=== PATIENT | female | born 1975 | race Caucasian/White ===

== ENCOUNTER 2021-01-08 | Outpatient (REF) | payer OTHER, SELFPAY | END 2021-01-08 00:01 | disposition home or self-care (01) | LOC: HO.LNP | PROVIDERS: Visit Provider Hospitalist | DX: R30.0 Dysuria (principal) | CPT/HCPCS: 87086; 87147 ==

== ENCOUNTER 2025-04-16 13:31 | Outpatient (AMB) | payer OTHER, SELFPAY ==
--- OUTSIDE RECORDS SUMMARY | 2024-01-13 05:00 | XMS_ITS ---
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 * Medical History: Objective: * Vitals: Assessment: Plan: * Treatment: * Images: Billing Information: * Visit Code: * Procedure Codes: * Electronic signature of BOBBY BARTON MD on 04/16/2025 at 05:26 PM EDT Sign off status: Pending * Provider: Otilia BARTON MD Date: 0 01/13/2024 Generated for Rocio patel/Luz/Dallin on: 0 04/16/2025 05:26 PM EDT
--- OUTSIDE RECORDS SUMMARY | 2024-12-27 11:00 | XMS_ITS ---
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 S he has been in state of good health since her last exam. She has the following concerns: *still having heavy periods. She has received the tapviva Covid-19 vaccine. R elationship status: * for [...] does *not exercise. * ROS: A nnual Roller Coaster Operator Exam ROS: Bowel habit changes d enies. [...] no acute distress, well developed, well nourished, testing manager present in room. HEAD: n ormocephalic, atraumatic. [...] * Follow Up: 1 Year (Reason: Yearly Roller Coaster Operator Exam) * Images: Billing Information: * Visit Code: 74021 Preventive Care Est Pt. Age 40-64. 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 She has been in state of [...] General Examination GENERAL APPEARANCE: in no ac [place] distress, well developed, well nourished, testing manager present in room HEAD: normocephalic, atrau matic [...]
[2025-04-16 13:38] VITALS: BP 132/82; PULSE 102; O2SAT 97
--- NOTE | 2025-04-16 13:38 | A.OFFPC_ITS ---
Vital Signs 04/16/25 13:38 Weight 254 lb 8 oz BP 132/82 Blood Pressure Location Lt brachial Position Sitting Pulse 102 H Pulse Source Pulse Oximeter Pulse Oximetry (%) 97 Oxygen Delivery Method Room Air Intake Visit Reasons: new patient Speeder Frame Tender Required: No Accompanied by: Self / Same As Patient Allergies Sulfa (Sulfonamide Antibiotics) Allergy (Mild, Verified 04/16/25 13:52) HIVES fluticasone (From FLONASE) Allergy (Unknown, Verified 04/16/25 13:52) HIVES febreze spray Allergy (Unknown, Uncoded 04/16/25 13:52) hives flonase Allergy (Unknown, Uncoded 04/16/25 13:52) hives shrimp Allergy (Unknown, Uncoded 04/16/25 13:52) throat swelling Medication List - Last Reconciled 04/16/25 by Anisa Ramos PA-C norethindrone (contraceptive) (Ivelisse) 0.35 mg PO DAILY Tobacco use date assessed: 04/16/25 Dental Screening Did you have a dental visit in the last 12 months?: No Did you have a dental problem in the last 6 months where you did not have access to dental care?: No Was dental information given to patient?: No HPI new patient HPI Details 49-year-old female coming to the office with the 1st time. Presenting for a wellness visit and to establish care. History of elevated blood pressure readings during medical appointments, not diagnosed as chronic hypertension. Experiencing premenopausal symptoms, including irregular periods and excessive bleeding, managed with control pills and does follow with senior digital designer. History of eardrum replacement surgery in the right ear, reports occasional hearing difficulties. mammogram: declining today but will think about it colonoscopy: Cologuard box ordered Vaccines: due for Td ordered today pap smear: [facility] Dr. Piedra yearly [facility] Surgical History H/O hemorrhoidectomy S/P tympanoplasty S/P tubal ligation H/O tympanostomy Family History Father Prostate cancer Mother Lung fibrosis Paternal Grandfather Leukemia Social History Household Members: Spouse and Children Both parents involved: Yes Caregiver staying overnight: No Housing: House Are you a primary multi care technician to a significant other at home: No Do you presently have visiting nurse or other home services: No Alcohol intake: current Patient Tobacco Use Status: Never used Tobacco e-Cigarette/Vaping Use: Never Used service: No Current occupational status: employed Current occupation: [employer] Cognitive needs: No Hearing needs: No Vision needs: Yes Questionnaire PHQ-9 Over the last 2 weeks, how often have you been bothered by any of the following problems? 1. Little interest or pleasure in doing things: not at all 2. Feeling down, depressed, or hopeless: not at all 3. Trouble falling or staying asleep, or sleeping too much: several days 4. Feeling tired or having little energy: several days 5. Poor appetite or overeating: not at all 6. Feeling bad about yourself - or that you are a failure or have let yourself or your family down: not at all 7. Trouble concentrating on things, such as reading the newspaper or watching television: not at all 8. Moving or speaking so slowly that other people could have noticed. Or the opposite - being so fidgety or restless that you have been moving around a lot more than usual: not at all 9. Thoughts that you would be better off or of hurting yourself in some way: not at all Total score: 2 Depression Screening Interpretation: Negative Depression Screening Done: Yes 72341 - PHQ-9 Billing: Yes Source: Developed by Drs. Adam Patel, Lucille Johnson, Clifford Chew and colleagues, with an educational maritza from [employer]. Thrive Questionnaire Date Thrive assessed: 04/16/25 I am a: Patient What is your living situation today?: I have a steady place to live Within the past 12 months, did the food you bought not last and you didn't have the money to get more?: Never true Within the past 12 months, did you worry whether your food would run out before you got money to buy more?: Never true Do you have trouble paying for medicines?: No Do you have trouble getting transportation to medical appointments?: No Do you have trouble paying your heating and electricity bill?: No Do you have trouble taking care of your child, family member or friend?: No Do you have trouble with day-to-day activities such as bathing, preparing meals, shopping, managing finances, etc.?: No Are you currently unemployed and looking for a job?: No Are you interested in more education?: No Please select the resources that you would like help with: None Currently or been in a relationship where the following occur: No concerns reported THRIVE Score: 0 AUDIT C Alcohol Use Questionnaire (AUDIT-C) 1. How often do you have a drink containing alcohol?: 2-3 times a week 2. How many drinks containing alcohol do you have on a typical day when you are drinking?: 1 or 2 3. How often do you have six or more drinks on one occasion?: Never Total Score: 3 INES-7 AMB Questionnaire INES-7 Date INES - 7 assessed: 04/16/25 Feeling nervous, anxious, or on edge: 1 = Several days Not being able to stop or control worryin = Not at all Worrying too much about different things: 0 = Not at all Trouble relaxin = Not at all Being so restless that it is hard to sit still: 0 = Not at all Becoming easily annoyed or irritable: 1 = Several days Feeling afraid as if something awful might happen: 0 = Not at all Total INES-7 score (0-4 normal; 5-9 mild; 10-14 moderate; 15-21 severe): 2 Source: Developed by Drs. Adam Patel, Lucille Johnson, Clifford Chew and colleagues, with an educational maritza from [employer]. INES-7 Assessment Billing INES-7 Assessment Tool: INES-7 Assessment 58309 Review of Systems Const Denies body aches, Denies fatigue, Denies fever(s), Denies frequent falls, Denies headache(s) and Denies weakness Eyes Reports no additional complaints and Denies change in vision ENT Denies dysphagia, Denies dizziness, Denies facial pain, Denies headache(s), Denies nasal congestion and Denies odynophagia Card Denies chest pain, Denies syncope, Denies irregular heart rhythm, Denies leg edema, Denies lightheadedness and Denies dyspnea Resp Denies cough and Denies dyspnea GI Denies constipation, Denies dysphagia, Denies dyspepsia, Denies diarrhea, Denies nausea, Denies odynophagia and Denies vomiting Denies urinary frequency, Denies dysuria, Denies urinary hesitancy and Denies urinary urgency Musc Denies back pain and Denies myalgias Skin/Breast Reports system reviewed and no additional complaints, except as documented Neuro Denies dizziness, Denies syncope, Denies frequent falls, Denies headache(s) and Denies weakness Psych Reports no additional complaints Endo Denies fatigue Physical exam (Primary Care) Vital Signs: Last Vital Signs Pulse 102 H 04/16/25 13:38 BP 132/82 04/16/25 13:38 Pulse Ox 97 04/16/25 13:38 Oxygen Delivery Method Room Air 04/16/25 13:38 Tobacco/Smoking Status: Tobacco use Status Tobacco use date assessed 04/16/25 04/16/25 13:51 Patient Tobacco Use Status Never used Tobacco 04/16/25 13:48 e-Cigarette/Vaping Use Never Used 04/16/25 13:51 PHQ-9: PHQ-9 Score PHQ-9: Total score 2 04/16/25 14:18 Depression Screening Interpretation: Negative Thrive Assessment: Date of Thrive Assessment Date Thrive assessed 04/16/25 04/16/25 13:42 Currently or been in a relationship where the following occur: No concerns reported Const General: cooperative, healthy appearing, comfortable and no acute distress Orientation/consciousness: patient oriented x3 HENMT Head: Yes normocephalic Ears: hearing grossly normal bilaterally General nose exam: Normal external nose present Face and sinus: Yes normal facial exam and Yes sinuses nontender Mouth: Normal oral and palatal mucosa present and tongue normal Throat: Yes posterior oropharynx normal Eyes General: appearance normal, both eyes and all related structures Conjunctivae: conjunctivae normal Pupils: Equal, round and reactive pupils present EOM: EOMs intact bilaterally and No Nystagmus present Neck Neck: Yes full ROM and Yes no lymphadenopathy Chest Chest palpation & inspection: normal inspection of the chest Resp Effort & Inspection: normal respiratory effort Auscultation: clear to auscultation bilaterally, no crackles, no rales, no rhonchi and no wheezes Cardio Rate: regular rate Rhythm: regular rhythm Peripheral pulses: radial pulses present and dorsalis pedis present GI Inspection: Yes normal to inspection and No Abdominal wall edema Palpation (GI): Soft to palpation, not firm and nontender Auscultation: normal bowel sounds Rectal Exam - Female: deferred General: Yes no CVA tenderness Back/Spine/Pelvis Back: no CVA tenderness Skin General skin exam: no rashes or lesions noted Neuro General: patient oriented x3 Cranial nerves: Yes Equal, round and reactive pupils present, Yes Midline tongue present, Yes Ability to bilaterally elevate shoulders present and No Nystagmus present Gait exam (Neuro): Normal gait present Extrem General: Yes normal to inspection, Yes full ROM and No edema Psych Speech and movement: Normal speech and movement present Affect: normal affect Attitude: cooperative Insight: Good insight present (Psych) Judgement: Good judgement present (Psych) Immunizations Boostrix Tdap 2.5 Lf unit-8 mcg-5 Lf/0.5 mL intramuscular syringe Performing Provider: Anisa Ramos PA-C Performing Location: [facility] [place] [place] [facility] Administered by: Kelly Wills RN on 04/16/25 14:18 Dose Route Admin Location Dispensed Lot Number Expiration Date [facility] Manufactured Buildings Supervisor 0.5 mL IM Left Deltoid 0.5 mL [id number] 06/20/27 [id number] [employer] Total Dispensed Waste 0.5 mL 0 % VIS Given Date VIS Provided VIS Publication Date 04/16/25 Single Vaccine 21 Eligibility Eligibility Date Funding Source Not [facility] Eligible 04/16/25 Private Coding Level of Care Code New Pt Prev Care 40-64y(83131) Diagnoses Annual physical exam Z00.00 Colon cancer screening Z12.11 Mammogram declined Z53.20 Obesity (BMI 30-39.9) E66.9 Perforated ear drum H72.90 Additional Codes INES-7 Assessment Billing - INES-7 Assessment Tool: INES-7 Assessment 50508 ([id number]) PHQ-9 - 25180 - PHQ-9 Billing: Yes ([id number]) Assessment & Plan Assessment & Plan (1) Annual physical exam: Code(s): Z00.00 - Encounter for general adult medical examination without abnormal findings Category: Medical Plan: Patient is not up to date on all recommended routine screenings and vaccinations for her age. She is due for mammogram which she is declining today. I placed the order for Cologuard box and blood work today. Healthy diet and regular exercise is encouraged. Plan to follow up in 3 months to review blood work or sooner as needed. (2) Colon cancer screening: Code(s): Z12.11 - Encounter for screening for malignant neoplasm of colon Category: Medical Plan: Ordered for Cologuard box today. (3) Mammogram declined: Code(s): Z53.20 - Procedure and treatment not carried out because of patient's decision for unspecified reasons Category: Medical Plan: Declining mammogram today and understands the risks of not having this screening test performed. (4) Obesity (BMI 30-39.9): Code(s): E66.9 - Obesity, unspecified Category: Medical Plan: Healthy diet and regular exercise is encouraged. (5) Perforated ear drum: Code(s): H72.90 - Unspecified perforation of tympanic membrane, unspecified ear Category: Medical Plan: Patient has a history of multiple tympanoplasty procedures on the right side and on exam there is a small hole in the TM. Recommend dry ear precautions and following up with ENT urgently for evaluation and treatment. No evidence of infection on exam and no drainage in the ear canal. Plan This note was constructed using voice recognition software. While every effort has been made to ensure accuracy and roving hauler, still areas may have been included sometimes these areas may affect the content or meeting of the given symptoms. Total time spent caring for the patient today was 30 minutes. This includes time spent before the visit reviewing the chart, time spent during the visit, and time spent after the visit and documentation. Patient was informed and verbally consented to the use of an ambient scribe for clinic note documentation during this visit. Orders: Orders Complete Blood Count Auto Diff 04/16/25 Z00.00 - Encounter for general adult medical examination without abnormal findings Comprehensive Met. Panel 04/16/25 E66.9 - Obesity, unspecified, Z13.1 - Encounter for screening for diabetes mellitus TSH reflex Free T4 04/16/25 Z13.29 - Encounter for screening for other suspected endocrine disorder Vitamin B12 and Folate 04/16/25 Z13.21 - Encounter for screening for nutritional disorder Vitamin D 25-OH Total 04/16/25 Z13.21 - Encounter for screening for nutritional disorder Lipid Panel 04/16/25 E66.9 - Obesity, unspecified, Z13.220 - Encounter for screening for lipoid disorders Hemoglobin A1c 04/16/25 Z13.1 - Encounter for screening for diabetes mellitus TDaP Immunization 04/16/25 Z23 - Encounter for immunization Referrals Cologuard Test Z12.11 - Encounter for screening for malignant neoplasm of colon Ear/Nose/Throat Referral H72.90 - Unspecified perforation of tympanic membrane, unspecified ear
--- OUTSIDE RECORDS SUMMARY | 2025-04-16 17:26 | XMS_ITS | Patient Health Record ---
Author Organization [employer] [facility] Address [address] [address] Care Team Providers Care Cashier Payments Received Name Role Phone RANDA ORONA, SAMANTHA Primary Care Provider Unav BOBBY Moulton Unavailable [phone] Allergies Allergen (clinical drug ingredient) Drug/Non Drug Allergy documented on EMR Reaction Allergy Type Onset Date Status fluticasone Flonase hives Drug Allergy Activ e Substance with sulfonamide structure and antibacterial mechanism of action (substance) Sulfa Antibiotics hives Drug Allergy Active Reason For Referral No Information Medications Medication SIG (Take, Route, Fr equency, Duration) Notes Start Date End Date Status Norethindrone 0.35 MG 1 tablet Orally On ce a day; Duration: 84 days 02/28/2024 Active Social History Tobacco Use: Social History Observation Description Date Details (start date - stop date) Never Smoker NA - NA Tobacco Use/Smoking Question Answer Notes Are you a nonsmoker Tobacco use other than smoking: Question Answer Notes Are you an other tobacco user? No AUDIT-C (Standard) Question Answer Notes Did you have a drink contain ing alcohol in the past year? Yes How often did you have six o r more drinks on one occasion in the past year? Never (0 point) How many drinks did you have on a typical day when you were drinking in the past year? 1 or 2 drinks (0 point) How often did you have a dri nk containing alcohol in the past year? 2 to 3 times a week (3 points) Points 3 Interpretation Positive Problems Problem Type SNOMED Code ICD Code Onset Dates Problem Status W/U Status Risk Notes Problem Excessive and frequent menstruation (147518355) Excessive and frequent menstruation with regular cycle (N92.0) Active confirmed Problem Leiomyoma of uterus (96075326) Leiomyoma of uterus, unspecified (D25.9) Active confirmed Problem Obesity (855071758) Obesity, unspecified (E66.9) Active confirmed Problem Migraine without aura, not refractory (disorder) (518126783) Migraine, unspecified, not intractable, without status migrainosus (G43.909) Active confirmed Problem Osteoarthritis (824640763) Unspecified osteoarthritis, unspecified site (M19.90) Active confirmed Problem Endometriosis of uterus (31342401) Endometriosis of uterus (N80.0) Active confirmed Problem Intermenstrual bleeding - irregular (29584231) Excessive and frequent menstruation with irregular cycle (N92.1) Active confirmed Problem Abnormal vaginal bleeding (678989926) Other specified abnormal uterine and vaginal bleeding (N93.8) Active confirmed Problem Body mass index 40+ - severely obese (770532437) Body mass index (BMI) 40.0-44.9, adult (Z68.41) Active confirmed Problem COVID-19 (929336072) COVID-19 (U07.1) Active confirmed Vital Signs Heart Rate 97.3 /min 02/14/2025 Blood pressure diastolic 74 mm Hg 02/14/2025 Height 65 in 02/14/2025 Blood pressure systolic 138 mm Hg 02/14/2025 Weight 251 lbs 02/14/2025 BMI 41.76 kg/m2 02/14/2025 Encounters Encounter Location Date Provider Diagnosis [address] [place] [address] 02/14/2025 BOBBY BARTON Encounter for gynecological examination (general) (routine) without abnormal findings Z01.419 ; Encounter for screening mammogram for malignant neoplasm of breast Z12.31 ; Excessive and frequent menstruation with regular cycle N92.0 and Body mass index (BMI) 40.0-44.9, adult Z68.41 Assessments Encounter Date Diagnosis (ICD Code) Assessment Notes Treatment Notes Treatment Clinical Notes Section Notes 02/14/2025 Encounter for gynecological examination (general) (routine) without [...] to keep colon screening up to date. 02/14/2025 Encounter for screening mammogram for malignant neoplasm of breast (ICD-10 - Z12.31) 02/14/2025 Excessive and frequent menstruation with regular cycle (ICD-10 - N92.0) 02/14/2025 Body mass index (BMI) 40.0-44.9, adult (ICD-10 - Z68.41) Plan Of Treatment Pending Test Test Name Order Date Ultrasound : Sono Hystergram 03/15/2018 ESTRADIOL 04/21/2018 FREE TESTOSTERONE 03/15/2018 FSH 04/21/2018 TESTOSTERONE, TOTAL, BY EXTRACTION 03/15 THIN PREP,HPV,FILIPE IF HPV+ (>29YR)(SCRN) 11/02/2017 MM Digital Mammo Screening 11/02/2017 MM Digital Screening Mammogram 3D 2018 MM Digital Screening Mammogram 3D 2023 MM Digital Screening Mammogram 3D 2024 CBC, Platelet, No Differential-[id number] Next Appt Details Provider Name:BOBBY Otilia FIGUEROAVIPIN Alla, 02/18/2026 09:30:00 AM, [address], [address], [place], [address], Insurance Providers Payer Name Payer Address Payer Phone Subscriber Number Group Number Insured Name Patient Relationship to Insured Coverage Start Date Coverage End Date [facility] [address] [place] [address] [id number] [id number] Self - patient is the insured 3 Medical (General) History Medical History History ICD Code Migraine, unspecified, not intractable, without status migrainosus G43.909 Unspecified osteoarthritis, unspecified site M19.90 Obesity, unspecified E66.9 Leiomyoma of uterus, unspecified Excessive and frequent menstruation with irregular cycle N92.1 COVID-19 U07.1 Surgical History Surgery Date(Month/Year) BTL 2006 cone bx 1994 Ear Drum Replacement 1988 laser to cervix late Hospitalization History Reason Date(Month/Year) See Surgical HX
== END 2025-04-16 14:22 | disposition home or self-care (01) ==
DX: Z23 Encounter for immunization (principal)

== ENCOUNTER → 2025-04-16 13:31 | Outpatient (BNVA) | payer OTHER, SELFPAY | DX: Z00.00 Encounter for general adult medical examination without abnormal findings (principal); E78.00 Pure hypercholesterolemia, unspecified; I10 Essential (primary) hypertension; E66.9 Obesity, unspecified; Z23 Encounter for immunization; Z86.69 Personal history of other diseases of the nervous system and sense organs; Z98.890 Other specified postprocedural states | CPT/HCPCS: 90471; 90715; 96127 ==

== ENCOUNTER 2025-07-06 11:28 | Outpatient (REF) | payer OTHER, SELFPAY ==
[2025-07-06 13:47] LABS: MANUAL DIFF FLAG NO
[2025-07-06 13:52] LABS: Hematocrit 40.3 % (37.0-47.0); Hemoglobin 12.8 g/dl (12.0-16.0); Imm Gran Abs Auto 0.02 X10*3/uL (0.00-0.03); Imm Gran Pct Auto 0.3 % (0.0-0.4); Lymphocytes Absolute Auto 2.2 X10*3/uL (1.2-4.9); Mean Corpuscular HGB Conc 31.8 g/dl (31.0-35.0); Mean Corpuscular Hemoglobin 26.8 pg (27.0-33.0); Mean Corpuscular Volume 84.5 fL (80.0-98.0); NRBC Abs Auto 0.000 X10*3/uL (0.0-0.012); NRBC Pct Auto 0.0 /100WBC (0.0-0.2); Platelet Count 293 X10*3/uL (160-400); Red Blood Count 4.77 X10*6/uL (4.20-5.50); White Blood Count 6.9 X10*3/uL (4.8-10.8)
[2025-07-06 14:11] LABS: Alanine Aminotransferase 26 U/L (0-31); Albumin Level 4.1 g/dL (3.5-5.0); Alkaline Phosphatase 78 U/L (39-117); Anion Gap 11 (12-20); Aspartate Amino Transferase 23 U/L (5-31); Blood Urea Nitrogen 15 mg/dL (9-16); Calcium 8.9 mg/dL (8.4-10.2); Carbon Dioxide 25 mmol/L (22-29); Chloride 106 mmol/L (96-108); Cholesterol 217 mg/dL (<200); Estimated Glomerular Filt Rate > 60; HDL Cholesterol 68 mg/dL (>40); Potassium 4.4 mmol/L (3.3-5.1); Sodium 138 mmol/L (135-145); Total Protein 7.5 g/dL (6.5-8.0); Triglycerides 85 mg/dL (<150)
[2025-07-06 14:40] LABS: Folate 11.5 ng/mL (> or = 4.0); Vitamin B12 384 pg/mL (200-900)
== END 2025-07-06 11:29 | disposition home or self-care (01) ==
LOC: HO.HMGCLDS 11:28
DX: Z00.00 Encounter for general adult medical examination without abnormal findings (principal); Z13.1 Encounter for screening for diabetes mellitus; E66.9 Obesity, unspecified; Z13.29 Encounter for screening for other suspected endocrine disorder; Z13.21 Encounter for screening for nutritional disorder; Z13.220 Encounter for screening for lipoid disorders
CPT/HCPCS: 36415; 80053; 80061; 82306; 82607; 82746; 83036; 84443; 85025

== ENCOUNTER 2025-07-22 14:23 | Outpatient (AMB) | payer OTHER, SELFPAY ==
--- OUTSIDE RECORDS SUMMARY | 2024-12-27 10:00 | XMS_ITS ---
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 Encounter Location Date Provider Diagnosis [facility] [address] [place] [phone] 12/27/2024 BOBBY BARTON Encounter for gynecological examination (general) (routine) without abnormal findings Z01.419 ; Encounter for screening mammogram for malignant neoplasm of breast Z12.31 and Encounter for screening for infections with a predominantly sexual mode of transmission Z11.3 Assessments Encounter Date Diagnosis (ICD Code) Assessment Notes Treatment Notes Treatment Clinical Notes Section Notes 12/27/2024 Encounter for gynecological examination (general) (routine) without abnormal findings (ICD-10 - Z01.419) During the visit, the following areas of concern were addressed: Discussed cervical cancer screening with either cytology alone every 3 years or high risk HPV co-testing every 5 years as per ASCCP guidelines. Advised continued annual pelvic exams. Patient encouraged to increase her level of exercise. SBE technique encouraged/tau ght. Patient reminded when annual mammogram is due. Patient encouraged to keep colon screening up to date. 12/27/2024 Encounter for screening mammogram for malignant neoplasm of breast (ICD-10 - Z12.31) 12/27/2024 Encounter for screening for infections with a predominantly sexual mode of transmission (ICD-10 - Z11.3) Plan Of Treatment Treatment Notes Assessment Notes Encounter for gynecological examination (general) (routine) without abnormal findings During the visit, the following areas of concern were addressed: Discussed cervical cancer screening with either cytology alone every 3 years or high risk HPV co-testing every 5 years as per ASCCP guidelines. Advised continued annual pelvic exams. Patient encouraged to increase her level of exercise. SBE technique encouraged/taught. Patient reminded when annual mammogram is due. Patient encouraged to keep colon screening up to date. 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 S he has been in state of good health since her last exam. She has the following concerns: *still having heavy periods. She has received the Evirx Covid-19 vaccine. R elationship status: * for 12 years. She feels safe at home. She is sexually active. Sexual preference: male. She does not wish to have STI testing. M enses: *monthly, heavy, lasting 5 days. On heaviest days, she wears the biggest pad (size 5) and she will saturate it in 90 minutes (for about 2 days). A CBC was normal in 2023. C ontraception: tubal ligation S he does *not report vaginal dryness. She does* have night sweats - she sleeps with the fan on with good effect. T he patient has *not had an abnormal pap smear within the last 5 years. Her most recent pap smear was 12/27/23 - NIL, neg HR HPV. She is next due for cotesting in 2028. S he has not been diagnosed with breast cancer. She does *not have a family history of breast cancer. She has *not had a mammogram - encouraged to schedule. She does *not have a family history of colon cancer. She has *not had a colonoscopy. T he patient does *not exercise. * ROS: A nnual Commercial Tire Service Technician Exam ROS: Bowel habit changes d enies. B ladder symptoms d enies. V aginal discharge, unusual d enies. V aginal itch or odor d enies. w eight or appetite changes d enies. C hest pains, SOB d enies. d epression d enies.? B reast: Denies B reast lump. D enies N ipple discharge.? H ematology: Denies S wollen glands. S kin: Patient denies c hanging moles. P sychiatric: Denies A nxiety. * Medical History: Objective: * Vitals: * Examination: G eneral Examination: GENERAL APPEARANCE: i n no acute distress, well developed, well nourished, microsoft architect present in room. HEAD: n ormocephalic, atraumatic. NECK/THYROID: n ramona supple, full range of motion, thyroid normal. LYMPH NODES: n o axillary or supraclavicular adenopathy.? SKIN: normal, good turgor, no rashes, no suspicious lesions. BREASTS: normal, no dimpling, no discharge, no drainage, no masses palpable bilaterally, nontender. ABDOMEN: soft, non-tender, non distended without masses or hepatosplenomegay. RECTAL: normal tone, no masses palpable. BACK: no costovertebral angle tenderness. FEMALE GENITOURINARY: V ulva without lesions or masses, vagina pink without abnormal discharge, lesions or masses, cervix appears normal and is not tender to palpation, uterus is normal size, mobile, nontender and anteverted, ovaries are not palpable. NEUROLOGIC: alert and oriented, gait normal. PSYCH: alert, oriented, cognitive function intact, cooperative with exam, good eye contact, mood/affect full range, speech clear. Assessment: * Assessment: 1. E ncounter for gynecological examination (general) (routine) without abnormal findings - Z01.419 (Primary) 2 . E ncounter for screening mammogram for malignant neoplasm of breast - Z12.31 3 . E ncounter for screening for infections with a predominantly sexual mode of transmission - Z11.3 Plan: * Treatment: 2. E ncounter for screening mammogram for malignant neoplasm of breast I maging: MM Digital Screening Mammogram 3D * Follow Up: 1 Year (Reason: Yearly Commercial Tire Service Technician Exam) * Images: Billing Information: * Visit Code: 64061 Preventive Care Est Pt. Age 40-64. 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 She has been in state of good health since her last exam. She has the following concerns: *still having heavy periods. She has received the Pfizer Covid-19 vaccine. Relationship status: * for 12 years. She feels safe at home. She is sexually active. Sexual preference: male. She does not wish to have STI testing. Menses: *monthly, heavy, lasting 5 days. On heaviest days, she wears the biggest pad (size 5) and she will saturate it in 90 minutes (for about 2 days). A CBC was normal in 2023. Contraception: tubal ligation She does *not report vaginal dryness. She does* have night sweats - she sleeps with the fan on with good effect. The patient has *not had an abnormal pap smear within the last 5 years. Her most recent pap smear was 12/27/23 - NIL, neg HR HPV. She is next due for cotesting in 2028. She has not been diagnosed with breast cancer. She does *not have a family history of breast cancer. She has *not had a mammogram - encouraged to schedule. She does *not have a family history of colon cancer. She has *not had a colonoscopy. The patient does *not exercise. Examination Category Sub-Category Detail Notes Category Not es General Examination GENERAL APPEARANCE: in no ac alie distress, well developed, well nourished, microsoft architect present in room HEAD: normocephalic, atrau matic NECK/THYROID: neck supple, full ra nge of motion, thyroid normal ABDOMEN: soft, non-tender, no n distended without masses or hepatosplenomegay NEUROLOGIC: alert and oriented, gait normal SKIN: normal, good turgor, no rashes, no suspicious lesions BACK: no costovertebral an gle tenderness BREASTS: normal, no dimpling, no discharge, no drainage, no masses palpable bilaterally, nontender LYMPH NODES: no axillary or supra clavicular adenopathy RECTAL: normal tone, no mass es palpable PSYCH: alert, oriented, cog nitive function intact, cooperative with exam, good eye contact, mood/affect full range, speech clear FEMALE GENITOURINARY: Vulva without lesi ons or masses, vagina pink without abnormal discharge, lesions or masses, cervix appears normal and is not tender to palpation, uterus is normal size, mobile, nontender and anteverted, ovaries are not palpable
--- NOTE | 2025-07-22 14:30 | MHC.PC.OV ---
Vital Signs 07/22/25 14:32 07/22/25 15:05 Height 5 ft 5 in Weight 252 lb BMI 41.9 BP 170/96 H 158/96 H Blood Pressure Location Lt brachial Rt brachial Position Sitting Sitting Respiration 18 Pulse 83 Pulse Source Pulse Oximeter Temp 97.7 F Temp Source Temporal Artery Scan Pulse Oximetry (%) 99 Oxygen Delivery Method Room Air Intake Visit Reasons: 3 month f/u Mental Health Program Specialist Required: No Accompanied by: Self / Same As Patient Allergies Sulfa (Sulfonamide Antibiotics) Allergy (Mild, Verified 07/22/25 14:48) HIVES fluticasone (From FLONASE) Allergy (Unknown, Verified 07/22/25 14:48) HIVES febreze spray Allergy (Unknown, Uncoded 07/22/25 14:48) hives flonase Allergy (Unknown, Uncoded 07/22/25 14:48) hives shrimp Allergy (Unknown, Uncoded 07/22/25 14:48) throat swelling Medication List - Last Reconciled 07/22/25 by Anisa Ramos PA-C blood sugar diagnostic (FreeStyle Lite Strips) As directed; to check sugars daily blood-glucose meter (FreeStyle Lite Meter kit) As directed; to check blood sugars daily lancets (FreeStyle Lancets) As directed to check sugars daily metformin 500 mg PO BIDWMEAL norethindrone (contraceptive) (Ivelisse) 0.35 mg PO DAILY Tobacco use date assessed: 04/16/25 Dental Screening Dental Screen Date: 07/22/25 Did you have a dental visit in the last 12 months?: No Did you have a dental problem in the last 6 months where you did not have access to dental care?: No Was dental information given to patient?: Patient has dentist HPI 3 month f/u HPI Details 50 year old female with past medical history of diabetes mellitus, hypercholesterolemia last seen 04/2025 coming in for follow up. Presenting for follow-up and management of newly diagnosed diabetes. She was recently started on metformin last Tuesday and began monitoring her blood glucose levels with a home monitor last . She reports her blood sugar levels are still quite high. She reports soft stools since starting metformin but denies diarrhea, stomach pains, nausea, or vomiting. [facility] Surgical History H/O hemorrhoidectomy S/P tympanoplasty S/P tubal ligation H/O tympanostomy Family History Father Prostate cancer Mother Lung fibrosis Paternal Grandfather Leukemia Social History Household Members: Spouse and Children Both parents involved: Yes Caregiver staying overnight: No Housing: House Are you a primary transition of care specialist to a significant other at home: No Do you presently have visiting nurse or other home services: No Alcohol intake: current Patient Tobacco Use Status: Never used Tobacco e-Cigarette/Vaping Use: Never Used service: No Current occupational status: employed Current occupation: [employer] Cognitive needs: No Hearing needs: No Vision needs: Yes Questionnaire Thrive Questionnaire Date Thrive assessed: 04/16/25 I am a: Patient What is your living situation today?: I have a steady place to live Within the past 12 months, did the food you bought not last and you didn't have the money to get more?: Never true Within the past 12 months, did you worry whether your food would run out before you got money to buy more?: Never true Do you have trouble paying for medicines?: No Do you have trouble getting transportation to medical appointments?: No Do you have trouble paying your heating and electricity bill?: No Do you have trouble taking care of your child, family member or friend?: No Do you have trouble with day-to-day activities such as bathing, preparing meals, shopping, managing finances, etc.?: No Are you currently unemployed and looking for a job?: No Are you interested in more education?: No Please select the resources that you would like help with: None Currently or been in a relationship where the following occur: No concerns reported THRIVE Score: 0 INES-7 AMB Questionnaire INES-7 Date INES - 7 assessed: 04/16/25 Source: Developed by Drs. Adam Patel, Lucille Johnson, Clifford Chew and colleagues, with an educational maritza from [employer]. Review of Systems Const Denies body aches, Denies chills, Denies fever(s), Denies headache(s) and Denies poor appetite Eyes Reports no additional complaints ENT Denies dizziness and Denies headache(s) Card Denies chest pain, Denies lightheadedness and Denies dyspnea Resp Denies cough and Denies dyspnea GI Denies abdominal pain, Denies nausea and Denies vomiting Reports no additional complaints Musc Reports no additional complaints and Denies abnormal gait Skin/Breast Reports system reviewed and no additional complaints, except as documented Neuro Denies abnormal gait, Denies dizziness and Denies headache(s) Psych Reports no additional complaints Physical exam (Primary Care) Vital Signs: Last Vital Signs Temp 97.7 F 07/22/25 14:32 Pulse 83 07/22/25 14:32 Resp 18 07/22/25 14:32 BP 158/96 H 07/22/25 15:05 Pulse Ox 99 07/22/25 14:32 Oxygen Delivery Method Room Air 07/22/25 14:32 BMI result Body Mass Index 41.9 Tobacco/Smoking Status: Tobacco use Status Tobacco use date assessed 04/16/25 07/22/25 14:32 Patient Tobacco Use Status Never used Tobacco 07/22/25 14:32 e-Cigarette/Vaping Use Never Used 07/22/25 14:32 Thrive Assessment: Date of Thrive Assessment Date Thrive assessed 04/16/25 07/22/25 14:32 Currently or been in a relationship where the following occur: No concerns reported Const General: cooperative, healthy appearing, comfortable and no acute distress Orientation/consciousness: patient oriented x3 HENMT Head: Yes normocephalic Ears: hearing grossly normal bilaterally General nose exam: Normal external nose present Eyes General: appearance normal, both eyes and all related structures Conjunctivae: conjunctivae normal Neck Neck: Yes full ROM and Yes no lymphadenopathy Resp Effort & Inspection: normal respiratory effort Auscultation: clear to auscultation bilaterally, no crackles, no rales, no rhonchi and no wheezes Cardio Rate: regular rate Rhythm: regular rhythm Skin General skin exam: no rashes or lesions noted Neuro General: patient oriented x3 Gait exam (Neuro): Normal gait present Extrem General: Yes normal to inspection, Yes full ROM and No edema Psych Affect: normal affect Attitude: cooperative Insight: Good insight present (Psych) Judgement: Good judgement present (Psych) Coding Level of Care Code Est Pt Level 3 (41012) Diagnoses Hypercholesterolemia E78.00 Diabetes mellitus E11.9 Obesity (BMI 30-39.9) E66.9 Elevated blood pressure reading without diagnosis of hypertension R03.0 Assessment & Plan Assessment & Plan (1) Hypercholesterolemia: Code(s): E78.00 - Pure hypercholesterolemia, unspecified Category: Medical Plan: The patient's LDL cholesterol was 132 mg/dL, which is above the goal of <100 mg/dL for a patient with diabetes. Dietary modifications to lower cholesterol were discussed, and educational materials were provided. Plan to retest cholesterol in three months. Discussed statin as well and patient would like to try dietary modification first. (2) Diabetes mellitus: Code(s): E11.9 - Type 2 diabetes mellitus without complications Category: Medical Plan: The patient presents with an HgbA1c of 8.8, corresponding to an average glucose of around 160 mg/dL. She recently started metformin and home glucose monitoring, with her sugars remaining elevated. Dietary changes were discussed, focusing on avoiding carbohydrates and sugary beverages, with an emphasis on protein-based meals. The plan is for the patient to continue metformin 500 mg twice daily, monitor her blood sugars, and report the values in one week via the patient portal. If the blood glucose levels remain high, the metformin dose will be increased. A referral to a diabetic nursing education specialist was offered. A fasting blood draw will be ordered to recheck labs in three months. (3) Obesity (BMI 30-39.9): Code(s): E66.9 - Obesity, unspecified Category: Medical Plan: Healthy diet and regular exercise is encouraged. (4) Elevated blood pressure reading without diagnosis of hypertension: Code(s): R03.0 - Elevated blood-pressure reading, without diagnosis of hypertension Category: Medical Plan: The patient's in-office blood pressure was elevated at 158/96 mmHg, though she notes anxiety related to blood pressure checks. She denies symptoms such as chest pain, headaches, or vision changes. The plan is for the patient to monitor her blood pressure at home every other day and send the readings along with her blood sugar log in one week. If home blood pressure readings remain elevated, the plan is to initiate losartan. The increased cardiovascular risk from the combination of elevated blood pressure, blood sugar, and cholesterol was discussed. Plan This note was constructed using voice recognition software. While every effort has been made to ensure accuracy and greenskeeper supervisor, still areas may have been included sometimes these areas may affect the content or meeting of the given symptoms. Total time spent caring for the patient today was 30 minutes. This includes time spent before the visit reviewing the chart, time spent during the visit, and time spent after the visit and documentation. Patient was informed and verbally consented to the use of an ambient scribe for clinic note documentation during this visit. Medications: Discontinued blood sugar diagnostic (Freestyle [employer]su[employer]x Test Strips) Discontinued Reason: Entered in error As directed; to check sugars daily 50 ea 0RF E11.9 - Type 2 diabetes mellitus without complications blood-glucose meter (Freestyle InsuLinx meter) Discontinued Reason: Insurance Denied As directed to check sugars daily 1 ea 0RF E11.9 - Type 2 diabetes mellitus without complications
[2025-07-22 14:32] VITALS: BP 170/96; PULSE 83; RESP 18; TEMP 36.5; O2SAT 99; BMI 41.9
[2025-07-22 15:05] VITALS: BP 158/96
--- OUTSIDE RECORDS SUMMARY | 2025-07-22 17:50 | XMS_ITS | Patient Health Record ---
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 Role Phone RANDA ORONA, SAMANTHA Primary Care Provider Unav BOBBY Moulton Unavailable [phone] Allergies Allergen (clinical drug ingredient) Drug/Non Drug [...] Risk Notes Problem Excessive and frequent menstruation (375005543) Excessive and frequent menstruation with regular cycle (N92.0) Active confirmed Problem Leiomyoma of uterus (43271082) Leiomyoma of uterus, unspecified (D25.9) Active confirmed Problem Obesity (289267479) Obesity, unspecified (E66.9) Active confirmed Problem Migraine without aura, not refractory (disorder) (620148113) Migraine, unspecified, not intractable, without status migrainosus (G43.909) Active confirmed Problem Osteoarthritis (274991112) Unspecified osteoarthritis, unspecified site (M19.90) Active confirmed Problem Endometriosis of uterus (37111980) Endometriosis of uterus (N80.0) Active confirmed Problem Intermenstrual bleeding - irregular (99195835) Excessive and frequent menstruation with irregular cycle (N92.1) Active confirmed Problem Abnormal vaginal bleeding (726133108) Other specified abnormal uterine and vaginal bleeding (N93.8) Active confirmed Problem Body mass index 40+ - severely obese (948959138) Body mass index (BMI) 40.0-44.9, adult (Z68.41) Active confirmed Problem COVID-19 (491553048) COVID-19 (U07.1) Active confirmed Vital Signs Heart Rate 97.3 /min 02/14/2025 Blood pressure diastolic 74 mm Hg 02/14/2025 Height 65 in 02/14/2025 Blood pressure systolic 138 mm Hg 02/14/2025 Weight 251 lbs 02/14/2025 BMI 41.76 kg/m2 02/14/2025 Encounters Encounter Location Date Provider Diagnosis [place] [address] [address] [address] 02/14/2025 BOBBY BARTNO Encounter for gynecological examination (general) (routine) without abnormal findings Z01.419 ; Encounter for screening mammogram for malignant neoplasm of breast Z12.31 ; Excessive and frequent menstruation with regular cycle N92.0 and Body mass index (BMI) 40.0-44.9, adult Z68.41 [facility] [place] [address] [address] 05/23/2025 BOBBY BARTON Assessments Encounter Date Diagnosis (ICD Code) Assessment [...] Screening 11/02/2017 MM Digital Screening Mammogram 3D 2024 MM Digital Screening Mammogram 3D 2018 MM Digital Screening Mammogram 3D 2023 CBC, Platelet, No [id number] Next Appt Details Provider Name:BOBBY Gold, 02/18/2026 09:30:00 AM, [address], [address], [place], [address], Insurance Providers Payer Name Payer Address Payer Phone Subscriber Number Group Number Insured Name Patient Relationship to Insured Coverage Start Date Coverage End Date [facility] [address] [place] [address] [id number] Self - patient is the [...]
== END 2025-07-22 15:08 | disposition home or self-care (01) ==
LOC: HO.HMCH 14:23
DX: E78.00 Pure hypercholesterolemia, unspecified (principal); E11.9 Type 2 diabetes mellitus without complications; E66.9 Obesity, unspecified; R03.0 Elevated blood-pressure reading, without diagnosis of hypertension